=== PATIENT | male | born 1960 | race Two or more races ===

== ENCOUNTER 2022-01-31 19:42 | Emergency (ER) | payer OTHER, MEDICAID ==
[~2022-01-31] VITALS: Ht 172.7 cm; Wt 100.2 kg
[2022-01-31 19:56] VITALS: BP_SYST 115
--- NOTE | 2022-01-31 20:02 | NUR ---
Pt from home with c/o RLQ pain radiating to right flank started todat 3 hours ago. Pt states he has hx of kidney stones. VSS. Denies N/V and diarrhea. Pt to remain in waiting room.
--- NOTE | 2022-01-31 20:10 | NUR ---
Pt to remain in waiting room .
[2022-01-31 21:16] LABS: BASOPHILS # (AUTO) 0.1 K/uL (0.0-0.2); BASOPHILS % (AUTO) 1.2 % (0.0-2.0); EOSINOPHILS # (AUTO) 0.7 K/uL (0.0-0.4); EOSINOPHILS % (AUTO) 8.2 % (0.0-4.0); HEMOGLOBIN 14.2 g/dL (14.0-18.0); LYMPHOCYTES # (AUTO) 2.7 K/uL (1.0-5.5); MEAN CORPUSCULAR HEMOGLOBIN 32 pg (27-31); MEAN CORPUSCULAR HGB CONC 35 % (32-36); MEAN CORPUSCULAR VOLUME 94 fL (79.0-98.0); MONOCYTES # (AUTO) 0.8 K/uL (0.0-1.0); MONOCYTES % (AUTO) 9.3 % (1.7-9.3); NEUTROPHILS % (AUTO) 48.3 % (40.0-70.0); PLATELET COUNT (AUTO) 233 K/uL (130-430); RED BLOOD CELL COUNT(AUTO) 4.37 MIL/uL (4.2-6.2); RED CELL DISTRIBUTION WIDTH 13.2 % (9.0-15.0); WHITE BLOOD COUNT (AUTO) 8.2 K/uL (4.8-10.8)
[2022-01-31 21:40] LABS: CALCIUM 8.7 mg/dL (8.4-11.0); CREATININE 1.17 mg/dL (0.55-1.30); POTASSIUM 4.1 mmol/L (3.5-5.1)
[2022-01-31 21:44] LABS: ALBUMIN 3.7 g/dL (3.4-4.8); TOTAL BILIRUBIN 0.2 mg/dL (0.0-1.0)
--- NOTE | 2022-01-31 23:00 | NUR ---
MD with patient for evaluation.
[2022-02-01] LABS: BILIRUBIN,URINE 2+ (NEGATIVE); BLOOD, URINE NEGATIVE (NEGATIVE); COLOR,URINE YELLOW (YELLOW); GLUCOSE,URINE NEGATIVE (NEGATIVE); KETONES,URINE NEGATIVE (NEGATIVE); LEUKOCYTE ESTERASE ,URINE NEGATIVE (NEGATIVE); NITRITE, URINE NEGATIVE (NEGATIVE); PH,URINE 5.5 (5.0-8.0); PROTEIN URINE NEGATIVE (NEGATIVE)
[2022-02-01] MEDS ORDERED: KETOROLAC TROMETHAMINE 30 MG VIAL IM ONE
[2022-02-01 00:01] LABS: CLARITY/URINE HAZY (CLEAR)
[2022-02-01 00:04] LABS: BACTERIA,URINE None Seen /HPF (None Seen); MUCUS,URINE None Seen /LPF (None Seen); RBC,URINE 0-3 /HPF (0-3); WBC,URINE 0-3 /HPF (0-3)
[2022-02-01 00:19] VITALS: BP_SYST 115
--- NOTE | 2022-02-01 00:19 | NUR ---
Patient given written and verbal discharge instructions and verbalizes understanding. ER Dr. Painter discussed with patient the results and treatment provided. Patient in stable condition. ID arm band removed. Patient educated on pain management and to follow up with PMD. Pain Scale 0. Opportunity for questions provided and answered. Medication side effect fact sheet provided.
== END 2022-02-01 00:19 | disposition home or self-care (01) ==
LOC: SED 19:42
DX: R10.9 Unspecified abdominal pain (principal); Z79.899 Other long term (current) drug therapy
CPT/HCPCS: 99284; 74176; 80053; 81000; 83690; 85025; 87040; 36415; 76376; 83605; 96372; J1885

== ENCOUNTER 2022-09-11 14:46 | Inpatient (IN) | payer OTHER, MEDICAID ==
[~2022-09-11] VITALS: Ht 172.7 cm; Wt 99.3 kg
--- NOTE | 2022-09-11 14:55 | NUR ---
DR. PRINCE IN TRIAGE ROOM TO ASSESS PT. PT TRAIGED AND TAKEN TO BED 5. JOHNATHAN RN GIVEN REPORT. PT HAS SOB X2 WEEKS WHICH INCREASES WHEN HE LAYS DOWN. THIS MORNING PT HAS BEEN COUGH BRIGHT RED BLOOD.
[2022-09-11] MEDS ORDERED: NACL 0.9% 1,000 ML IV ONE (15:00)
[2022-09-11 15:06] VITALS: BP_SYST 137
[2022-09-11] MEDS ORDERED: AZITHROMYCIN 500 MG in NS 250 ML IV ONE (15:15)
[2022-09-11] MEDS ORDERED: TAMS-11 PO (15:36)
[2022-09-11] MEDS ORDERED: ESCI10TA PO (15:36)
[2022-09-11] MEDS ORDERED: ROSU20TA2 PO (15:36)
[2022-09-11] MEDS ORDERED: PALI3TAB5 PO (15:36)
[2022-09-11] MEDS ORDERED: VITD2000 PO (15:36)
[2022-09-11] MEDS ORDERED: OXCA600T5 PO (15:36)
[2022-09-11] MEDS ORDERED: METO25TA3 PO (15:36)
[2022-09-11] MEDS ORDERED: CLOP75TA32 PO (15:41)
[2022-09-11] MEDS ORDERED: EZET10TA30 PO (15:41)
--- NOTE | 2022-09-11 15:42 | NUR ---
Medication reconciliation completed with information provided by PATIENT . Any prior medication reconciliation on file was reviewed and corrected.
[2022-09-11 15:46] LABS: BASOPHILS % (AUTO) 0.5 % (0.0-2.0); EOSINOPHILS # (AUTO) 0.3 K/uL (0.0-0.4); EOSINOPHILS % (AUTO) 3.6 % (0.0-4.0); HEMATOCRIT 41.7 % (36-54); HEMOGLOBIN 14.3 g/dL (14.0-18.0); LYMPHOCYTES # (AUTO) 2.5 K/uL (1.0-5.5); LYMPHOCYTES % (AUTO) 36.1 % (20.5-51.5); MEAN CORPUSCULAR HEMOGLOBIN 32 pg (27-31); MEAN CORPUSCULAR HGB CONC 34 % (32-36); MEAN CORPUSCULAR VOLUME 94 fL (79.0-98.0); MONOCYTES # (AUTO) 0.6 K/uL (0.0-1.0); MONOCYTES % (AUTO) 8.5 % (1.7-9.3); NEUTROPHILS # (AUTO) 3.6 K/uL (1.8-7.7); NEUTROPHILS % (AUTO) 51.3 % (40.0-70.0); PLATELET COUNT (AUTO) 183 K/uL (130-430); RED BLOOD CELL COUNT(AUTO) 4.45 MIL/uL (4.2-6.2); RED CELL DISTRIBUTION WIDTH 13.4 % (9.0-15.0)
--- NOTE | 2022-09-11 15:56 | NUR ---
URINE SAMPLE OBTAINED AND TAKEN TO LAB.
[2022-09-11 16:00] LABS: BILIRUBIN,URINE NEGATIVE (NEGATIVE); BLOOD, URINE 1+ (NEGATIVE); COLOR,URINE YELLOW (YELLOW); GLUCOSE,URINE NEGATIVE (NEGATIVE); KETONES,URINE NEGATIVE (NEGATIVE); LEUKOCYTE ESTERASE ,URINE NEGATIVE (NEGATIVE); NITRITE, URINE NEGATIVE (NEGATIVE); PROTEIN URINE NEGATIVE (NEGATIVE); UROBILINOGEN,URINE 0.2 (0.2-1.0)
[2022-09-11 16:02] LABS: ALBUMIN 3.7 g/dL (3.4-4.8); CALCIUM 8.1 mg/dL (8.4-11.0); CREATININE 0.9 mg/dL (0.55-1.30); TOTAL BILIRUBIN 0.2 mg/dL (0.0-1.0)
[2022-09-11 16:04] LABS: CLARITY/URINE SLIGHTLY CLOUDY (CLEAR)
[2022-09-11 16:07] LABS: BACTERIA,URINE RARE /HPF (None Seen); WBC,URINE 0-3 /HPF (0-3)
[2022-09-11] MEDS ORDERED: cefTRIAXone 2 GM VIAL ONE (16:24)
[2022-09-11] MEDS ORDERED: AZITHROMYCIN 500 MG/VIAL (ZITHROMAX) IV ONE (16:24)
--- NOTE | 2022-09-11 16:54 | NUR ---
Admit bed requested Patient will be admitted to care of . Admitted to TELEMETRY unit. Diagnosis PNEUMONIA Inpatient (Yes or No) Y Observation (Yes or No) N Orientation concerns or request close to nursing station NO Covid Status N/A On vent or bipap N Isolation requirements N Needs a sitter N From Home (Yes or if No enter name of facility) Y Requires Dialysis (Yes or No) N Med Rec Completed (Yes of No) Y
--- NOTE | 2022-09-11 17:23 | NUR ---
Patient seen by MD and was sent to [facility] dept for CT of chest. Patient has returned and gotten all medicines and treatments prescribed. Patient now awaiting MD acceptance for admittance.
--- NOTE | 2022-09-11 19:19 | NUR ---
ASSUMED PATIENT CARE AT THIS TIME
--- NOTE | 2022-09-11 20:00 | NUR ---
PATIENT NOTED COUGHING A CONSIDERABLE AMOUNT OF BLOOD INTO EMESIS BAG, 50CC OF BRIGHT RED BLOOD NOTED, ER MD MADE AWARE, PATIENT PLACED ON ISOLATION PRECAUTIONS FOR COUGHING BLOOD, SUSPECTED TB, PATIENT NOTED TO BE ON PLAVIX
--- NOTE | 2022-09-11 20:57 | NUR ---
REPORT GIVEN TO MAYNOR MARTINEZ , PATIENT TRANSFERRED TO ISOLATION ROOM 115, PATIENT ADMITTED UNDER THE CAME OF MD AVITIA
[2022-09-11] MEDS: OXcarbazepine 150 MG TABLET(TRILEPTAL) PO SCH (21:23)
[2022-09-11] MEDS: ATORVASTATIN 20 MG TABLET PO SCH (21:24)
[2022-09-11] MEDS: METOPROLOL SUCCINATE 25 MG TAB.SR.24H (TOPROL XL) PO SCH (21:24)
[2022-09-11 22:18] VITALS: BP_SYST 108
--- NOTE | 2022-09-11 22:39 | NUR ---
Admission Note Received patient from ER with diagnosis of PNEUMONIA. Initial Plan of Care discussed-patient verbalized understanding. Oriented to room, call light, pain management and safety.
[2022-09-12 00:15] VITALS: BP_SYST 118
--- NOTE | 2022-09-12 07:23 | NUR ---
CLOSING NOTES Patient resting in bed no s/s pain or distress noted. Respirations even and unlabored - head of bed elevated. IV site patent no s/s redness infection or infiltration. Bed locked and in lowest position. Call light within reach.
[2022-09-12] MEDS ORDERED: PALIPERIDONE 3 MG PO SCH (09:00)
[2022-09-12] MEDS: TAMSULOSIN HCL 0.4 MG CAP PO SCH (09:20)
[2022-09-12] MEDS: EZETIMIBE 10 MG TABLET PO SCH (09:21)
[2022-09-12] MEDS: CITALOPRAM HYDROBROMIDE 20 MG TABLET PO SCH (09:21)
[2022-09-12] MEDS: CLOPIDOGREL BISULFATE 75 MG TABLET PO SCH (09:21)
[2022-09-12] MEDS: CHOLECALCIFEROL (VITAMIN D3) 2,000 UNIT TABLET PO SCH (09:21)
[2022-09-12 09:30] VITALS: BP_SYST 119
[2022-09-12] MEDS: OXcarbazepine 150 MG TABLET(TRILEPTAL) PO SCH ×2 (10:16→20:22)
--- NOTE | 2022-09-12 10:20 | NUR ---
SPECIMEN PT COUGHED UP BLOODY PHLEGM INTO THE SPECIMEN CUP, THEN SENT TO LAB FOR GRAM, CULTURE AND AFB STAIN.
[2022-09-12] MEDS ORDERED: ONDANSETRON HCL 4 MG/2 ML VIAL IVP PRN (10:30)
[2022-09-12] MEDS ORDERED: HYDROcodone/ACETAMIN 5-325 MG TAB (NORCO/ VICODIN) PO PRN (10:30)
[2022-09-12] MEDS ORDERED: HYDROcodone/ACETAMIN 10-325 MG TAB PO PRN (10:30)
[2022-09-12] MEDS ORDERED: ALBUTEROL SULFATE 0.083% 2.5 MG/3 ML VIAL.NEB INH PRN (10:30)
[2022-09-12] MEDS ORDERED: IPRATROPIUM BROM 0.5 MG/2.5 ML VIAL.NEB (ATROVENT) INH PRN (10:30)
[2022-09-12] MEDS ORDERED: LORazepam 2 MG/ML VIAL IVP PRN (10:30)
[2022-09-12] MEDS ORDERED: ACETAMINOPHEN 325 MG TABLET PO PRN ×2 (10:30→11:00)
[2022-09-12] MEDS ORDERED: NALOXONE HCL 0.4 MG/ML AMP (NARCAN) IVP PRN ×2 (10:30)
[2022-09-12 10:48] VITALS: BP_SYST 119
[2022-09-12 12:07] VITALS: BP_SYST 123
--- NOTE | 2022-09-12 12:30 | NUR ---
SPECIMEN ANOTHER SPUTUM SAMPLE SENT TO LAB FOR AFB STAINING.
[2022-09-12] MEDS: NORMAL SALINE 5 ML DISP.SYRIN IVF SCH ×2 (13:28→20:41)
--- NOTE | 2022-09-12 13:28 | NUR ---
IV SALINE LOCK IN LEFT HAND DIFFICULT TO FLUSH WITH SALINE, IV LOCK KINKED WHEN REMOVED. NEW IV INSERTED INTO LEFT A/C, 20 GAUGE CATHETER WITH GOOD BLOOD RETURN NOTED.
[2022-09-12 16:00] VITALS: BP_SYST 120
[2022-09-12] MEDS: cefTRIAXone 1 GM IVPB PREMIX 50 ML IV SCH (16:19)
[2022-09-12] MEDS: AZITHROMYCIN 500 MG in NS 250 ML IV SCH (17:31)
--- NOTE | 2022-09-12 18:17 | NUR ---
LAB SPECIMEN NEEDS TO BE RECOLLECTED REPORTED BY DOUG. PATIENT HAVING DINNER AT THIS HOUR.
[2022-09-12 20:00] VITALS: BP_SYST 125
[2022-09-12] MEDS: ATORVASTATIN 20 MG TABLET PO SCH (20:22)
[2022-09-12] MEDS: METOPROLOL SUCCINATE 25 MG TAB.SR.24H (TOPROL XL) PO SCH (20:40)
--- NOTE | 2022-09-12 21:45 | NUR ---
Sputum sample was collected and taken to lab.
[2022-09-12] MEDS: NICOTINE 21 MG/24 HR PATCH.TD24 TD SCH (23:25)
[2022-09-13 00:05] VITALS: BP_SYST 104
--- NOTE | 2022-09-13 01:36 | NUR ---
OPENING NOTES: 1999: Patient was received during change of shift. Patient AA&Ox4 able to make needs known, sitting in a chair by the bed with call light within reach. Chest rise even and unlabored on RA on Tele-monitoring. Patient admitted for Bloody sputum and noted with vomit bag where he will spit sputum at bedside with red blood. Sputum sample still pending education provided that we needed another sample. Safety measures in place as per protocol care was resumed at this time. 22:00 Patient has been assessed as per protocol and scheduled medications have been administered as ordered. Patient is noted to ambulate independently and needed minimal assistance for evening care. Patient reported that he had feeling of anxiety because he was craving to smoke because he normally smokes 1-1/2 pack of cigarettes per day. Dr[address] Andrea was called and new ordered were received for a nicotine patch. 0030: Patient is noted to be sleep no s/s of distress noted. V/S were assessed and noted to be WNL. Nicotinewas applied to RILEY as ordered. Will continue to monitor.
[2022-09-13 04:03] LABS: BASOPHILS # (AUTO) 0.1 K/uL (0.0-0.2); BASOPHILS % (AUTO) 0.7 % (0.0-2.0); EOSINOPHILS # (AUTO) 0.3 K/uL (0.0-0.4); EOSINOPHILS % (AUTO) 3.7 % (0.0-4.0); HEMATOCRIT 38.6 % (36-54); HEMOGLOBIN 13.2 g/dL (14.0-18.0); LYMPHOCYTES # (AUTO) 2.6 K/uL (1.0-5.5); LYMPHOCYTES % (AUTO) 34.4 % (20.5-51.5); MEAN CORPUSCULAR HEMOGLOBIN 32 pg (27-31); MEAN CORPUSCULAR HGB CONC 34 % (32-36); MEAN CORPUSCULAR VOLUME 94 fL (79.0-98.0); MONOCYTES # (AUTO) 0.7 K/uL (0.0-1.0); MONOCYTES % (AUTO) 9.3 % (1.7-9.3); NEUTROPHILS # (AUTO) 3.9 K/uL (1.8-7.7); NEUTROPHILS % (AUTO) 51.9 % (40.0-70.0); PLATELET COUNT (AUTO) 172 K/uL (130-430); RED BLOOD CELL COUNT(AUTO) 4.13 MIL/uL (4.2-6.2); RED CELL DISTRIBUTION WIDTH 13.2 % (9.0-15.0); WHITE BLOOD COUNT (AUTO) 7.5 K/uL (4.8-10.8)
[2022-09-13 04:10] LABS: C-REACTIVE PROTEIN QUANT 0.2 mg/dL (0-0.5); CALCIUM 7.9 mg/dL (8.4-11.0); CREATININE 0.92 mg/dL (0.55-1.30)
[2022-09-13] MEDS: NORMAL SALINE 5 ML DISP.SYRIN IVF SCH ×3 (06:16→22:24)
[2022-09-13 07:34] LABS: ERYTHROCYTE SEDIMENTATION RATE 2 MM/HR (0-15)
[2022-09-13 08:00] VITALS: BP_SYST 119
--- NOTE | 2022-09-13 08:00 | NUR ---
Initial notes Alert, ambulatory. Denies any pain or discomfort. On room air, still coughing up blood. No distress. Update with plan of care and test. patient stated that he is getting bored. Call light within reach. Enc to call for help as needed. keep on airborne iso .
[2022-09-13] MEDS: NICOTINE 21 MG/24 HR PATCH.TD24 TD SCH (09:00)
[2022-09-13] MEDS: EZETIMIBE 10 MG TABLET PO SCH (09:13)
[2022-09-13] MEDS: OXcarbazepine 150 MG TABLET(TRILEPTAL) PO SCH ×2 (09:13→20:46)
[2022-09-13] MEDS: CITALOPRAM HYDROBROMIDE 20 MG TABLET PO SCH (09:14)
[2022-09-13] MEDS: CLOPIDOGREL BISULFATE 75 MG TABLET PO SCH (09:14)
[2022-09-13] MEDS: CHOLECALCIFEROL (VITAMIN D3) 2,000 UNIT TABLET PO SCH (09:14)
[2022-09-13] MEDS: TAMSULOSIN HCL 0.4 MG CAP PO SCH (09:14)
--- NOTE | 2022-09-13 11:00 | NUR ---
Notes- resting, no distress.
[2022-09-13 11:34] VITALS: BP_SYST 132
--- NOTE | 2022-09-13 13:29 | NUR ---
notes-Sputum for cytology sent to pathology.
[2022-09-13] MEDS: cefTRIAXone 1 GM IVPB PREMIX 50 ML IV SCH (15:29)
[2022-09-13] MEDS: AZITHROMYCIN 500 MG in NS 250 ML IV SCH (16:36)
[2022-09-13 18:01] VITALS: BP_SYST 116
[2022-09-13 20:00] VITALS: BP_SYST 124
[2022-09-13] MEDS: ATORVASTATIN 20 MG TABLET PO SCH (20:46)
[2022-09-13] MEDS: METOPROLOL SUCCINATE 25 MG TAB.SR.24H (TOPROL XL) PO SCH (20:46)
[2022-09-14 01:08] VITALS: BP_SYST 93
[2022-09-14] MEDS: NORMAL SALINE 5 ML DISP.SYRIN IVF SCH ×3 (05:23→21:55)
[2022-09-14 06:04] LABS: BASOPHILS # (AUTO) 0.1 K/uL (0.0-0.2); BASOPHILS % (AUTO) 0.8 % (0.0-2.0); EOSINOPHILS # (AUTO) 0.3 K/uL (0.0-0.4); EOSINOPHILS % (AUTO) 4.6 % (0.0-4.0); HEMATOCRIT 41.3 % (36-54); HEMOGLOBIN 14.1 g/dL (14.0-18.0); LYMPHOCYTES # (AUTO) 2.1 K/uL (1.0-5.5); LYMPHOCYTES % (AUTO) 31.6 % (20.5-51.5); MEAN CORPUSCULAR HEMOGLOBIN 32 pg (27-31); MEAN CORPUSCULAR HGB CONC 34 % (32-36); MEAN CORPUSCULAR VOLUME 94 fL (79.0-98.0); MONOCYTES # (AUTO) 0.6 K/uL (0.0-1.0); MONOCYTES % (AUTO) 9.8 % (1.7-9.3); NEUTROPHILS # (AUTO) 3.5 K/uL (1.8-7.7); NEUTROPHILS % (AUTO) 53.2 % (40.0-70.0); PLATELET COUNT (AUTO) 174 K/uL (130-430); RED BLOOD CELL COUNT(AUTO) 4.39 MIL/uL (4.2-6.2); RED CELL DISTRIBUTION WIDTH 13.1 % (9.0-15.0); WHITE BLOOD COUNT (AUTO) 6.6 K/uL (4.8-10.8)
[2022-09-14 06:36] LABS: ANION GAP 5 (5-15); C-REACTIVE PROTEIN QUANT < 0.2 mg/dL (0-0.5); CALCIUM 8.1 mg/dL (8.4-11.0); CHLORIDE 102 mmol/L (98-107); CREATININE 0.87 mg/dL (0.55-1.30); GFR AFRICAN AMERICAN 115 mL/min (>90); GLUCOSE 97 mg/dL (70-99); UREA NITROGEN, BLOOD 16 mg/dL (8-21)
[2022-09-14 06:46] LABS: ERYTHROCYTE SEDIMENTATION RATE 6 MM/HR (0-15)
[2022-09-14 07:38] VITALS: BP_SYST 120
--- NOTE | 2022-09-14 08:00 | NUR ---
Initial notes- Alert, sitting in the chair. Eating breakfast. Denies any pain or shortness of breath. still spitting up some blood. No distress. Enc to call for help as needed.
[2022-09-14] MEDS: CHOLECALCIFEROL (VITAMIN D3) 2,000 UNIT TABLET PO SCH (08:17)
[2022-09-14] MEDS: OXcarbazepine 150 MG TABLET(TRILEPTAL) PO SCH ×2 (08:17→21:54)
[2022-09-14] MEDS: TAMSULOSIN HCL 0.4 MG CAP PO SCH (08:18)
[2022-09-14] MEDS: EZETIMIBE 10 MG TABLET PO SCH (08:18)
[2022-09-14] MEDS: CLOPIDOGREL BISULFATE 75 MG TABLET PO SCH (08:18)
[2022-09-14] MEDS: CITALOPRAM HYDROBROMIDE 20 MG TABLET PO SCH (08:18)
[2022-09-14] MEDS: NICOTINE 21 MG/24 HR PATCH.TD24 TD SCH (08:19)
--- NOTE | 2022-09-14 11:00 | NUR ---
Notes- Resting in bed, No acute distress noted.
[2022-09-14 11:54] VITALS: BP_SYST 134
[2022-09-14] MEDS: cefTRIAXone 1 GM IVPB PREMIX 50 ML IV SCH (15:47)
[2022-09-14] MEDS: AZITHROMYCIN 500 MG in NS 250 ML IV SCH (16:41)
[2022-09-14 16:50] VITALS: BP_SYST 116
--- NOTE | 2022-09-14 17:00 | NUR ---
Notes- third AFB sent to lab.
[2022-09-14 20:00] VITALS: BP_SYST 111
[2022-09-14] MEDS: ATORVASTATIN 20 MG TABLET PO SCH (21:54)
[2022-09-14] MEDS: METOPROLOL SUCCINATE 25 MG TAB.SR.24H (TOPROL XL) PO SCH (22:00)
[2022-09-15 01:39] VITALS: BP_SYST 120
[2022-09-15] MEDS: NORMAL SALINE 5 ML DISP.SYRIN IVF SCH ×3 (05:28→21:12)
--- NOTE | 2022-09-15 06:45 | NUR ---
CLOSING NOTES PATIENT IS SITTING ON THE CHAIR BY BEDSIDE. NO S/S OF DISTRESS OR DISCOMFORT. PATIENT SLEPT THROUGHOUT THE NIGHT VITAL SIGNS WERE STABLE AND ALL NIGHT MEDICATIONS WERE GIVEN. IV FLUSHING FINE. SAFETY CHECKS ARE DONE AND CALL LIGHT WITH IN REACH,
[2022-09-15 08:27] LABS: BASOPHILS # (AUTO) 0.1 K/uL (0.0-0.2); EOSINOPHILS # (AUTO) 0.4 K/uL (0.0-0.4); EOSINOPHILS % (AUTO) 5.3 % (0.0-4.0); HEMATOCRIT 46.3 % (36-54); HEMOGLOBIN 15.5 g/dL (14.0-18.0); LYMPHOCYTES # (AUTO) 2.2 K/uL (1.0-5.5); LYMPHOCYTES % (AUTO) 29.5 % (20.5-51.5); MEAN CORPUSCULAR HEMOGLOBIN 32 pg (27-31); MEAN CORPUSCULAR HGB CONC 34 % (32-36); MEAN CORPUSCULAR VOLUME 94 fL (79.0-98.0); MONOCYTES # (AUTO) 0.7 K/uL (0.0-1.0); NEUTROPHILS # (AUTO) 4.1 K/uL (1.8-7.7); NEUTROPHILS % (AUTO) 54.2 % (40.0-70.0); PLATELET COUNT (AUTO) 197 K/uL (130-430); RED BLOOD CELL COUNT(AUTO) 4.92 MIL/uL (4.2-6.2); RED CELL DISTRIBUTION WIDTH 13.1 % (9.0-15.0); WHITE BLOOD COUNT (AUTO) 7.5 K/uL (4.8-10.8)
[2022-09-15 08:40] LABS: ANION GAP 5 (5-15); CALCIUM 8.7 mg/dL (8.4-11.0); CHLORIDE 99 mmol/L (98-107); CREATININE 0.86 mg/dL (0.55-1.30); GFR AFRICAN AMERICAN 117 mL/min (>90); GLUCOSE 99 mg/dL (70-99); UREA NITROGEN, BLOOD 18 mg/dL (8-21)
[2022-09-15 08:44] LABS: C-REACTIVE PROTEIN QUANT < 0.2 mg/dL (0-0.5)
[2022-09-15 08:57] VITALS: BP_SYST 135
[2022-09-15] MEDS: CLOPIDOGREL BISULFATE 75 MG TABLET PO SCH (08:59)
[2022-09-15 09:00] VITALS: BP_SYST 135
[2022-09-15] MEDS: EZETIMIBE 10 MG TABLET PO SCH (09:00)
[2022-09-15] MEDS: TAMSULOSIN HCL 0.4 MG CAP PO SCH (09:00)
[2022-09-15] MEDS: CITALOPRAM HYDROBROMIDE 20 MG TABLET PO SCH (09:00)
[2022-09-15] MEDS: NICOTINE 21 MG/24 HR PATCH.TD24 TD SCH (09:00)
[2022-09-15] MEDS: CHOLECALCIFEROL (VITAMIN D3) 2,000 UNIT TABLET PO SCH (09:00)
[2022-09-15] MEDS: OXcarbazepine 150 MG TABLET(TRILEPTAL) PO SCH ×2 (09:00→21:11)
[2022-09-15 09:14] LABS: ERYTHROCYTE SEDIMENTATION RATE 11 MM/HR (0-15)
--- NOTE | 2022-09-15 10:48 | NUR ---
CONSULTATION PAGED REASON FOR CONSULTATION:PNEUUMONIA?POSSIBLE TB WAS CONSULT CALLED?Y PERSON WHO WAS NOTIFIED:JUAN APBLO CONSULTING PHYSICIAN:TATI TIERNEY PULP PILER SPECIALTY:ID [employer] PHONE NUMBER:[phone] REQUESTING PHYSICIAN:SARAH BETH TORREZ
[2022-09-15 11:18] VITALS: BP_SYST 141
[2022-09-15] MEDS: cefTRIAXone 1 GM IVPB PREMIX 50 ML IV SCH (16:10)
[2022-09-15 16:16] VITALS: BP_SYST 138
[2022-09-15] MEDS: AZITHROMYCIN 500 MG in NS 250 ML IV SCH (17:34)
[2022-09-15 20:00] VITALS: BP_SYST 124
[2022-09-15] MEDS: ATORVASTATIN 20 MG TABLET PO SCH (21:11)
[2022-09-15] MEDS: METOPROLOL SUCCINATE 25 MG TAB.SR.24H (TOPROL XL) PO SCH (21:12)
[2022-09-16 00:43] VITALS: BP_SYST 116; BP_SYST 127
[2022-09-16 05:48] LABS: BASOPHILS # (AUTO) 0.1 K/uL (0.0-0.2); BASOPHILS % (AUTO) 0.9 % (0.0-2.0); EOSINOPHILS # (AUTO) 0.4 K/uL (0.0-0.4); EOSINOPHILS % (AUTO) 5.8 % (0.0-4.0); HEMATOCRIT 42.2 % (36-54); HEMOGLOBIN 14.4 g/dL (14.0-18.0); LYMPHOCYTES # (AUTO) 1.8 K/uL (1.0-5.5); LYMPHOCYTES % (AUTO) 28.1 % (20.5-51.5); MEAN CORPUSCULAR HEMOGLOBIN 32 pg (27-31); MEAN CORPUSCULAR HGB CONC 34 % (32-36); MEAN CORPUSCULAR VOLUME 93 fL (79.0-98.0); MONOCYTES # (AUTO) 0.6 K/uL (0.0-1.0); MONOCYTES % (AUTO) 9.6 % (1.7-9.3); NEUTROPHILS # (AUTO) 3.6 K/uL (1.8-7.7); NEUTROPHILS % (AUTO) 55.6 % (40.0-70.0); PLATELET COUNT (AUTO) 193 K/uL (130-430); RED BLOOD CELL COUNT(AUTO) 4.53 MIL/uL (4.2-6.2); RED CELL DISTRIBUTION WIDTH 13.1 % (9.0-15.0); WHITE BLOOD COUNT (AUTO) 6.5 K/uL (4.8-10.8)
[2022-09-16 06:21] LABS: ALANINE AMINOTRANSFERASE 18 U/L (12-78); ALBUMIN 3.6 g/dL (3.4-4.8); ANION GAP 5 (5-15); ASPARTATE AMINOTRANSFERASE 12 U/L (10-37); CALCIUM 8.2 mg/dL (8.4-11.0); CHLORIDE 98 mmol/L (98-107); CREATININE 0.82 mg/dL (0.55-1.30); GFR AFRICAN AMERICAN 123 mL/min (>90); GLUCOSE 90 mg/dL (70-99); TOTAL BILIRUBIN 0.4 mg/dL (0.0-1.0); UREA NITROGEN, BLOOD 18 mg/dL (8-21)
[2022-09-16 06:26] LABS: C-REACTIVE PROTEIN QUANT < 0.2 mg/dL (0-0.5)
[2022-09-16] MEDS: NORMAL SALINE 5 ML DISP.SYRIN IVF SCH ×3 (06:48→21:56)
[2022-09-16 07:02] LABS: ERYTHROCYTE SEDIMENTATION RATE 5 MM/HR (0-15)
[2022-09-16 08:00] VITALS: BP_SYST 126
[2022-09-16] MEDS: CITALOPRAM HYDROBROMIDE 20 MG TABLET PO SCH (09:27)
[2022-09-16] MEDS: EZETIMIBE 10 MG TABLET PO SCH (09:27)
[2022-09-16] MEDS: TAMSULOSIN HCL 0.4 MG CAP PO SCH (09:27)
[2022-09-16] MEDS: CLOPIDOGREL BISULFATE 75 MG TABLET PO SCH (09:27)
[2022-09-16] MEDS: OXcarbazepine 150 MG TABLET(TRILEPTAL) PO SCH ×2 (09:28→21:56)
[2022-09-16] MEDS: CHOLECALCIFEROL (VITAMIN D3) 2,000 UNIT TABLET PO SCH (09:28)
[2022-09-16] MEDS: NICOTINE 21 MG/24 HR PATCH.TD24 TD SCH (09:29)
[2022-09-16 11:30] VITALS: BP_SYST 112
--- NOTE | 2022-09-16 15:01 | NUR ---
Dietitian Recommendations * Continue Cardiac diet * Snacks BID w/ meals LP, MS, TONI Please refer to Nutrition Assessment for details. Addendum: 09/16/22 at [address] Amended: Links added.
[2022-09-16 15:04] VITALS: BP_SYST 124
[2022-09-16] MEDS: cefTRIAXone 1 GM IVPB PREMIX 50 ML IV SCH (16:43)
[2022-09-16] MEDS: AZITHROMYCIN 500 MG in NS 250 ML IV SCH (18:18)
[2022-09-16 19:00] VITALS: BP_SYST 125
--- NOTE | 2022-09-16 19:15 | NUR ---
change of shift.pt.presents isolation:[place];r/o tb.pt.presents o2-sat%=98%@room air.pt.absent cough.general status stable.pt.capable to reposition self/ambulate un-assisted.call light/telephone w/in access of the pt.
[2022-09-16 20:00] VITALS: BP_SYST 125
--- NOTE | 2022-09-16 20:00 | NUR ---
pt.assessed.v/s assessed values wnl.02-sat%=98%.iv access location;lt.antecubital intact;patent.no c/o pain,nausea. pt..apprised snacks/beverages are available w/in the shift.no requests posited@this hour.pt.capable to reposition self. call light/telephone w/in access of the pt.
--- NOTE | 2022-09-16 21:00 | NUR ---
2100p medications administered.pt.capable to ingest the po medications w/out difficulty.pt.requested snacks/beverages; provided.no c/o pain,nausea.call light/telephone w/in access of the pt.
[2022-09-16] MEDS: ATORVASTATIN 20 MG TABLET PO SCH (21:55)
[2022-09-16] MEDS: METOPROLOL SUCCINATE 25 MG TAB.SR.24H (TOPROL XL) PO SCH (21:55)
--- NOTE | 2022-09-16 22:00 | NUR ---
pt.assessed.pt.quiescent.no c/o pain,nausea.no requests posited@this hour.02-sat%=98%.pt.capable to reposition self. call light/telephone w/in access of the pt.
--- NOTE | 2022-09-17 | NUR ---
pt.assessed.v/s assessed values wnl.no c/o pain,nausea.02-sat%=98%@room air.iv access intact;patent.no requests posited@ this hour.call light/telephone w/in access of the pt.
--- NOTE | 2022-09-17 02:00 | NUR ---
pt.assessed.pt.quiescent.per flacc pain mgx pt.absent facial grimaces/body posturing.pt.capable to reposition self. respiratory pattern/character calm,quiescent.call light/telephone w/in access of the pt.
[2022-09-17 02:44] VITALS: BP_SYST 120
--- NOTE | 2022-09-17 04:00 | NUR ---
pt.assessed.pt.quiescent.per flacc pain mgx pt.absent facial grimaces/body posturing.o2-sat%=98%.pt.capable to reposition self.call light/telephone w/in access of the pt.
[2022-09-17] MEDS: NORMAL SALINE 5 ML DISP.SYRIN IVF SCH (05:34)
--- NOTE | 2022-09-17 06:00 | NUR ---
pt.assessed.pt.quiescent.per flacc pain mgx pt.absent facial grimaces/body posturing.o2-sat%=98%.pt.capable to reposition self.call light/telephone w/in access of the pt.
[2022-09-17 07:22] LABS: ANION GAP 5 (5-15); CALCIUM 8.3 mg/dL (8.4-11.0); CHLORIDE 97 mmol/L (98-107); CREATININE 0.79 mg/dL (0.55-1.30); GFR AFRICAN AMERICAN 129 mL/min (>90); GLUCOSE 95 mg/dL (70-99); UREA NITROGEN, BLOOD 16 mg/dL (8-21)
[2022-09-17 07:23] LABS: C-REACTIVE PROTEIN QUANT < 0.2 mg/dL (0-0.5)
[2022-09-17 07:30] VITALS: BP_SYST 116
--- NOTE | 2022-09-17 07:30 | NUR ---
OPENING NOTES Patient laying in bed resting. A/O x 4, Irish speaking. Patient breathing even and unlabored on room air. No pain, no distress, no SOB. Patient is on a Cardiac diet. Patient has LAC 20g patent on SL. Patient is on bedrest. Bed is locked in lowest position. Call light within reach, all needs met, will continue with plan of care. Addendum: 09/17/22 at 0747 by Tracy Chan LVN Patient on BRP.
[2022-09-17 07:32] LABS: BASOPHILS # (AUTO) 0.1 K/uL (0.0-0.2); BASOPHILS % (AUTO) 1.2 % (0.0-2.0); EOSINOPHILS # (AUTO) 0.4 K/uL (0.0-0.4); EOSINOPHILS % (AUTO) 6.2 % (0.0-4.0); HEMATOCRIT 43.4 % (36-54); HEMOGLOBIN 14.9 g/dL (14.0-18.0); LYMPHOCYTES # (AUTO) 2.2 K/uL (1.0-5.5); LYMPHOCYTES % (AUTO) 33.1 % (20.5-51.5); MEAN CORPUSCULAR HEMOGLOBIN 32 pg (27-31); MEAN CORPUSCULAR HGB CONC 34 % (32-36); MEAN CORPUSCULAR VOLUME 94 fL (79.0-98.0); MONOCYTES # (AUTO) 0.6 K/uL (0.0-1.0); MONOCYTES % (AUTO) 9.5 % (1.7-9.3); NEUTROPHILS # (AUTO) 3.3 K/uL (1.8-7.7); PLATELET COUNT (AUTO) 203 K/uL (130-430); RED BLOOD CELL COUNT(AUTO) 4.64 MIL/uL (4.2-6.2); WHITE BLOOD COUNT (AUTO) 6.7 K/uL (4.8-10.8)
[2022-09-17 08:06] LABS: HEPATITIS A AB, IgM Negative (Negative); HEPATITIS B CORE AB, IgM Negative (Negative); HEPATITIS B SURFACE AG Negative (Negative)
[2022-09-17 08:16] LABS: ERYTHROCYTE SEDIMENTATION RATE 5 MM/HR (0-15)
[2022-09-17] MEDS: NICOTINE 21 MG/24 HR PATCH.TD24 TD SCH (08:33)
[2022-09-17] MEDS: CLOPIDOGREL BISULFATE 75 MG TABLET PO SCH (08:34)
[2022-09-17] MEDS: TAMSULOSIN HCL 0.4 MG CAP PO SCH (08:34)
[2022-09-17] MEDS: CITALOPRAM HYDROBROMIDE 20 MG TABLET PO SCH (08:34)
[2022-09-17] MEDS: OXcarbazepine 150 MG TABLET(TRILEPTAL) PO SCH (08:34)
[2022-09-17] MEDS: CHOLECALCIFEROL (VITAMIN D3) 2,000 UNIT TABLET PO SCH (08:34)
[2022-09-17] MEDS: EZETIMIBE 10 MG TABLET PO SCH (08:34)
[2022-09-17] MEDS ORDERED: AMOX-423 PO (11:03)
[2022-09-17 11:35] VITALS: BP_SYST 123
[2022-09-17 11:37] VITALS: BP_SYST 123
--- NOTE | 2022-09-17 11:57 | NUR ---
D/C Patient Patient given medication reconciliation form and D/C instructions. Exit Care provided. Patient verbalized understanding. MD Andrea discussed with patient the results and treatment provided. Ambulatory with steady gait for discharge to home. Patient in stable condition, ID band removed. IV catheter removed, intact and dressing applied, no active bleeding. MED Rec given. Patient educated on medication management and follow up care. All belongings sent with patient.
== END 2022-09-17 11:57 | disposition home health service (06) | DRG 190 ==
LOC: SED 14:46 → STU 17:01 → SMU 09-14 16:57
PROVIDERS: ADMIT Preventive Medicine Preventive Medicine/Occupational Environmental Medicine; ATTEND Preventive Medicine Preventive Medicine/Occupational Environmental Medicine
DX: J44.1 Chronic obstructive pulmonary disease with (acute) exacerbation (principal); J18.9 Pneumonia, unspecified organism; E87.1 Hypo-osmolality and hyponatremia; R04.2 Hemoptysis; J44.0 Chronic obstructive pulmonary disease with (acute) lower respiratory infection; F31.9 Bipolar disorder, unspecified; Z20.822 Contact with and (suspected) exposure to COVID-19; I25.10 Atherosclerotic heart disease of native coronary artery without angina pectoris; E78.5 Hyperlipidemia, unspecified; E83.51 Hypocalcemia; E83.52 Hypercalcemia; E11.9 Type 2 diabetes mellitus without complications; Z72.0 Tobacco use; Z95.1 Presence of aortocoronary bypass graft; Z79.899 Other long term (current) drug therapy; Z78.9 Other specified health status
CPT/HCPCS: 36415; 71045; 71260-TC; 76376; 80048; 80053; 80074; 81000; 83605; 85025; 85651-TC; 86140; 87040; 87116; 87205-TC; 88108; 88305; 93005; 94760; 99285; G0378; J0456; J0696; J7050; J7613; Q9967